=== PATIENT | male | born 1970 | race Caucasian/White ===

== ENCOUNTER 2020-10-12 14:16 | Inpatient (IN) | payer OTHER ==
[2020-10-12 15:45] LABS: BASOPHIL 0.6 % (0-2); EOSINOPHIL 0.4 % (0-5); HCT 43.7 % (42.0-52.0); HGB 14.4 g/dl (13.2-18.0); LYMPHOCYTE 7.2 % (15-48); MPV 11.1 fL (6.0-9.5); NRBC 0; PLT 274 K/uL (150-400); RBC 4.65 M/uL (4.70-6.00); RDW 12.4 % (11.5-14.0); WBC 12.7 K/uL (4.0-10.5)
[2020-10-12 16:11] LABS: PRO-BNP 55 pg/mL (<125)
[2020-10-12 16:25] LABS: LACTIC ACID 1.7 mmol/L (0.4-1.9)
[2020-10-12 16:35] LABS: ALBUMIN 2.6 g/dL (3.4-5.0); ALKALINE PHOSHATASE 79 U/L (46-116); ALT 113 U/L (16-63); AST 76 U/L (15-37); BILIRUBIN - TOTAL 0.6 mg/dL (0.2-1.0); BUN 17 mg/dL (7-18); BUN/CREAT RATIO (CALC) 18.5 RATIO; C-REACTIVE PROTEIN >18.00 mg/dL (<=0.90); CHLORIDE 94 mmol/L (98-107); CO2 (BICARBONATE) 28 mmol/L (21-32); CREATININE 0.92 mg/dL (0.67-1.17); GLOBULIN (CALCULATION) 4.7 g/dL; GLUCOSE 134 mg/dL (74-106); LDH 330 U/L (85-227); POTASSIUM 4.2 mmol/L (3.5-5.1); TOTAL PROTEIN 7.3 g/dL (6.4-8.2)
[2020-10-12] MEDS ORDERED: PRINIVIL20 MG PO (23:16)
[2020-10-12] MEDS ORDERED: ALLOPURINOL300 MG PO (23:16)
[2020-10-12] MEDS ORDERED: DAILY VALUE1 EACH PO (23:17)
[2020-10-12] MEDS ORDERED: VITAMIN C500 M1 PO (23:18)
[2020-10-12] MEDS ORDERED: VITAMIN D31250 MC1 PO (23:19)
[2020-10-12] MEDS ORDERED: ZINC50 M2 PO (23:20)
--- NOTE | 2020-10-13 00:32 | NUR ---
PLACED PATIENT ON SPO2 MONITOR. AFTER ADMITTING SPO2 STATED 82% WENT INTO PATIENT ROOM AND INCRASED OXYGEN TO 4 LITERS PATIENT WAS ONLY 86% INCREASED TO [address] CHANDLER AND SHE STATED WE NEED TO GET A STAT ABG AND THEN PLACE PATIEN ON HIGH FLOW. PATIENT IS BEING TRANSFERD TO [facility] RESPIRATORY NOTIFED
[2020-10-13] MEDS ORDERED: PRINIVIL20 MG PO (18:26)
[2020-10-13] MEDS ORDERED: ALLOPURINOL100 MG PO (18:28)
[2020-10-14 04:34] LABS: BASOPHIL 0.6 % (0-2); EOSINOPHIL 0 % (0-5); HCT 43.9 % (42.0-52.0); HGB 14.1 g/dl (13.2-18.0); LYMPHOCYTE 11.4 % (15-48); MCH 30.7 pg (25.0-31.0); MCHC 32.1 g/dL (32.0-36.0); MCV 95.4 fL (78.0-100.0); MONOCYTE 5.1 % (0-12); MPV 11.6 fL (6.0-9.5); NEUTROPHIL 75.1 % (41-80); NRBC 0; PLT 355 K/uL (150-400); RDW 12.4 % (11.5-14.0); WBC 14.2 K/uL (4.0-10.5)
[2020-10-14 04:51] LABS: ALBUMIN 2.4 g/dL (3.4-5.0); BILIRUBIN - TOTAL 0.3 mg/dL (0.2-1.0); BUN/CREAT RATIO (CALC) 29.8 RATIO; CREATININE 0.94 mg/dL (0.67-1.17); GLOBULIN (CALCULATION) 4.8 g/dL; TOTAL PROTEIN 7.2 g/dL (6.4-8.2)
[2020-10-16 04:42] LABS: BASOPHIL 0.9 % (0-2); EOSINOPHIL 0.3 % (0-5); HCT 45.6 % (42.0-52.0); HGB 14.8 g/dl (13.2-18.0); LYMPHOCYTE 9.1 % (15-48); MCH 31.3 pg (25.0-31.0); MCHC 32.5 g/dL (32.0-36.0); MCV 96.4 fL (78.0-100.0); MONOCYTE 4.4 % (0-12); MPV 11.4 fL (6.0-9.5); NRBC 0; PLT 382 K/uL (150-400); RBC 4.73 M/uL (4.70-6.00); RDW 12.3 % (11.5-14.0)
[2020-10-16 04:44] LABS: WBC 15.9 K/uL (4.0-10.5)
[2020-10-16 04:50] LABS: ALBUMIN 2.5 g/dL (3.4-5.0); BILIRUBIN - TOTAL 0.4 mg/dL (0.2-1.0); C-REACTIVE PROTEIN 2.4 mg/dL (<=0.90); CREATININE 0.93 mg/dL (0.67-1.17); GLOBULIN (CALCULATION) 4.6 g/dL; POTASSIUM 4.9 mmol/L (3.5-5.1); TOTAL PROTEIN 7.1 g/dL (6.4-8.2)
--- NOTE | 2020-10-16 12:56 | NUR ---
SPOKE TO PT IN REGARDS TO DC NEEDS. IF PT NEEDS HOME O2 - REQUEST [facility] TO PROVIDE PLEASE GET WALK TEST WHEN ABLE. PT WANTS [facility] [place] ; PER JULI[facility]N WITH [facility] THEY CAN ACCEPT. IT PT DC'D ON 10/17, CC WILL INFORM. IF PT GOES HOME OVER WEEKEND, CALL JULIÁN AT [facility] @ [phone]
[2020-10-18] MEDS ORDERED: VENTOLIN HFA IN18 GM INH (09:51)
[2020-10-18] MEDS ORDERED: MEDROL 4MG DOSEP4 MG PO (09:51)
[2020-10-18] MEDS ORDERED: ATROVENT HFA12.9 GM INH (09:51)
[2020-10-19 04:31] LABS: BASOPHIL 0.9 % (0-2); EOSINOPHIL 0.4 % (0-5); HCT 44.8 % (42.0-52.0); HGB 14.5 g/dl (13.2-18.0); LYMPHOCYTE 7.4 % (15-48); MCH 30.9 pg (25.0-31.0); MCHC 32.4 g/dL (32.0-36.0); MCV 95.3 fL (78.0-100.0); MPV 11.3 fL (6.0-9.5); NRBC 0; PLT 347 K/uL (150-400); RDW 12.2 % (11.5-14.0); WBC 17.4 K/uL (4.0-10.5)
[2020-10-19 04:38] LABS: NEUTROPHIL 77.2 % (41-80)
[2020-10-19 04:57] LABS: BUN/CREAT RATIO (CALC) 23.1 RATIO; CREATININE 0.91 mg/dL (0.67-1.17); POTASSIUM 5.8 mmol/L (3.5-5.1)
== END 2020-10-19 15:45 | disposition home health service (06) | DRG 177 ==
LOC: FER 14:16 → FMS 17:37 → FTCU 10-13 00:43 → FMS 10-16 07:48
PROVIDERS: Allergy & Immunology Allergy; Emergency Medicine; ADMIT Internal Medicine
PROC: 8E0ZXY6 Isolation (ICD-10-PCS; 2020-10-12)
PROC: XW033E5 Introduction of Remdesivir Anti-infective into Peripheral Vein, Percutaneous Approach, New Technology Group 5 (ICD-10-PCS; 2020-10-13)
PROC: 5A0945A Assistance with Respiratory Ventilation, 24-96 Consecutive Hours, High Flow/Velocity Cannula (ICD-10-PCS; principal; 2020-10-14)
DX: U07.1 COVID-19 (principal); J12.89 Other viral pneumonia; J96.21 Acute and chronic respiratory failure with hypoxia; E87.1 Hypo-osmolality and hyponatremia; K76.0 Fatty (change of) liver, not elsewhere classified; I10 Essential (primary) hypertension; E66.01 Morbid (severe) obesity due to excess calories; Z98.42 Cataract extraction status, left eye; Z98.41 Cataract extraction status, right eye
CPT/HCPCS: 36415; 36600; 71045; 71275; 80048; 80053; 82728; 82803; 83605; 83615; 83880; 84145; 84484; 85025; 85379; 86140; 87040; 87070; 87205; 94640; C9399; J0456; J0696; J1100; J1650; J7050; J8540